=== PATIENT | male | born 1975 | race Caucasian/White ===

== ENCOUNTER 2017-02-22 17:36 | Emergency (ER) | payer OTHER ==
[~2017-02-22 17:36] MED LIST: CELEXA PO; DICLOFENAC PO; FLEXERIL10 M1 PO; GLUCOVANCE PO; LANTUS100 U/ML SUBQ
[2017-02-22 17:49] LABS: INFLUENZA A POS (NEG); INFLUENZA B NEG (NEG)
== END 2017-02-22 18:10 | disposition home or self-care (01) ==
LOC: SED 17:36
PROVIDERS: Physician Assistant
DX: J10.1 Influenza due to other identified influenza virus with other respiratory manifestations (principal); E11.9 Type 2 diabetes mellitus without complications; F17.210 Nicotine dependence, cigarettes, uncomplicated; Z98.890 Other specified postprocedural states
CPT/HCPCS: 87651; 87804; 99283